=== PATIENT | female | born 1995 | race African-American/Black ===

== ENCOUNTER 2018-04-03 00:15 | Emergency (ER) | payer SELFPAY ==
[~2018-04-03] VITALS: Ht 170.2 cm; Wt 105.0 kg
[2018-04-03 00:21] VITALS: BP 109/65
== END 2018-04-03 01:30 | disposition left against medical advice (07) ==
LOC: ER 00:36
DX: M54.5 Low back pain (principal); Z53.21 Procedure and treatment not carried out due to patient leaving prior to being seen by health care provider